=== PATIENT | male | born 1955 | race Caucasian/White ===

== ENCOUNTER 2018-01-05 05:39 | Emergency (ER) | payer OTHER ==
[~2018-01-05] VITALS: Ht 165.1 cm; Wt 61.0 kg
[~2018-01-05 05:39] MED LIST: CEPHALEXIN500 M1 OR; CIPRO500 MG PO; CLARITIN10 MG OR; DILAUDID2 MG OR; FLONASE0.05 %; LISINOP/HCTZ1 TAB PO; MAXALT10 MG PO; NO HOME MEDS; PROSTATE MED; TORADOL PO; ULTRAM50 M1 PO; VIAGRA25 MG OR
[2018-01-05] MEDS ORDERED: VIAGRA50 MG PO (06:31)
[2018-01-05] MEDS ORDERED: LISINOPRIL10 M1 PO (06:32)
[2018-01-05 06:38] LABS: HEMATOCRIT 42.2 % (39.0-50.0); HEMOGLOBIN 14.7 g/dl (14.0-18.0); IMMATURE GRANULOCYTES 0.5 % (0.0-1.0); MEAN CELL VOLUME 95.9 fL CALC (80.0-100.0); MEAN CORPUSCULAR HGB 33.4 pG CALC (26.0-32.0); MEAN CORPUSCULAR HGB CONC 34.8 g/L CALC (32.0-36.0); NEUT# 3.16 thou/uL (1.82-7.42); RED BLOOD COUNT 4.4 mill/uL (4.70-6.10); RED CELL DISTRI WIDTH 13.1 % (11.5-15.5)
[2018-01-05 06:53] LABS: ACT PARTIAL THROMBO TIME 26.4 SECONDS (20.0-32.5); ALKALINE PHOSPHATASE 60 u/l (38-126); BILIRUBIN, TOTAL 0.9 mg/dL (0.0-1.4); BUN 8 mg/dL (8-23); BUN/CREATININE RATIO 9 (12-20 (CALC)); CHLORIDE 105 mmol/l (95-108); CREATININE 0.9 mg/dL (0.7-1.3); GFR > 60 ML/MIN (>=60 (CALC)); GFR FOR AFR.AMER. > 60 ML/MIN (>=60 (CALC)); POTASSIUM 4.3 mmol/l (3.5-5.1); SGOT/AST 33 u/l (19-48); SGPT/ALT 40 u/l (11-66); SODIUM 136 mmol/l (137-146); TOTAL PROTEIN 6.5 g/dL (6.3-8.2)
[2018-01-05 06:54] LABS: ANION GAP 15 (6-22 (CALC)); CARBON DIOXIDE 20 mmol/l (22-30)
[2018-01-05 07:03] LABS: MYOGLOBIN 27 ng/mL (0 - 121)
[2018-01-05 08:34] LABS: URINE BILIRUBIN - DIPSTICK NEGATIVE (NEGATIVE); URINE BLOOD DIPSTICK NEGATIVE (NEGATIVE); URINE COLOR YELLOW; URINE GLUCOSE - DIPSTICK NEGATIVE (NEGATIVE); URINE KETONE NEGATIVE (NEGATIVE); URINE LEUK ESTERASE NEGATIVE (NEGATIVE); URINE NITRITE - DIPSTICK NEGATIVE (Negative); URINE PROTEIN - DIPSTICK NEGATIVE (NEG-TRACE); URINE UROBILINOGEN - DIPSTICK 0.2 E.U./dL (0.2)
[2018-01-05 08:35] LABS: URINE CLARITY CLEAR
[2018-01-05] MEDS ORDERED: VENTOLIN HFA IN (09:50)
[2018-01-05] MEDS ORDERED: PREDNISONE50 MG PO (09:50)
[2018-01-05] MEDS ORDERED: ZITHROMAX250 MG PO (09:50)
[2018-01-05 09:52] VITALS: BP 135/85
== END 2018-01-05 10:05 | disposition home or self-care (01) | DRG 948 ==
LOC: ED 05:39
PROVIDERS: Emergency Medicine
DX: R41.0 Disorientation, unspecified (principal); F17.200 Nicotine dependence, unspecified, uncomplicated; I10 Essential (primary) hypertension; R06.02 Shortness of breath; R20.2 Paresthesia of skin; R53.81 Other malaise; R42 Dizziness and giddiness